=== PATIENT | female | born 1965 | race Caucasian/White ===

== ENCOUNTER 2017-11-19 16:32 | Emergency (ER) | payer BC ==
[2017-11-19] MEDS ORDERED: Sodium Chloride 0.9% 10 ML Syringe FLUSH PRN (17:00)
[2017-11-19] MEDS ORDERED: Ondansetron 4 MG/2 ML SDV IV ONE (17:00)
[2017-11-19] MEDS ORDERED: Ketorolac 30 MG/ML SDV IVPUSH ONE (17:00)
[2017-11-19 17:37] VITALS: BP 167/88
[2017-11-19] MEDS ORDERED: Sodium Chloride 0.9% 1,000 ML IV ONE (17:41)
--- NOTE | 2017-11-19 18:51 | EDM.PDOC ---
Scribed by Sada Stone 11/19/17 [id number] for Yessy Arias NP ED HPI GENERAL MEDICAL PROBLEM - General Chief Complaint: Headache Stated Complaint: MIGRANE [id number] Time Seen by Provider: 11/19/17 17:00 Source of Information: Reports: Patient, RN, RN Notes Reviewed History Limitations: Reports: No Limitations - History of Present Illness INITIAL COMMENTS - FREE TEXT/NARRATIVE: Patient presents with a migraine for 1-1/2 weeks. Not feeling well. She is not sleeping. She has right hand numbness and tingling. She also has pain in her right jaw and numb right cheek. She has a history of stress. She recently lost her father 1-1/2 weeks ago suddenly unexpected. She has no fever, diarrhea or vomiting. She has positive chills, nausea, stress and lack of sleep. She saw a chiropractor this week for sinus issues. Onset: Gradual Duration: Constant Location: Reports: Head Quality: Reports: Ache Severity: Severe Improves with: Reports: None Worsens with: Reports: None Associated Symptoms: Reports: No Other Symptoms Headache Pain Score (Numeric/FACES): 6 - Related Data Allergies Allergy/AdvReac Type Severity Reaction Status Date / Time ceftriaxone sodium Allergy Swelling Verified 11/19/17 16:46 [From Rocephin] cetirizine Allergy Swelling Verified 11/19/17 16:46 levofloxacin [From Levaquin] Allergy Swelling Verified 11/19/17 16:46 meperidine HCl [From Demerol] Allergy Nausea and Verified 11/19/17 16:46 Vomiting Home Meds: Home Meds Biotin 1 tab PO DAILY 07/04/15 [History] Calcium Carb/Vitamin D3/Vit K1 [Calcium + Vit D & K Chew] 1 tab PO BEDTIME 07/04 [History] EPINEPHrine [Epipen 2-Remberto] 0.3 ml INJECT ASDIRECTED PRN 07/04/15 [History] Fish Oil/[place]-3 Fatty Acids [Fish Oil 1,000 MG] 1 tab PO DAILY 07/04/15 [ History] Fluticasone Propionate [Flonase] 1 spray INH DAILY PRN 07/04/15 [History] Lisinopril 1 tab PO BEDTIME 07/04/15 [History] Montelukast [Singulair] 1 tab PO BEDTIME 07/04/15 [History] Pantoprazole [Protonix] 1 tab PO BEDTIME 07/04/15 [History] Simvastatin [Zocor] 1 tab PO DAILY 07/05/15 [History] Tolterodine Tartrate [Detrol LA] 4 mg PO ASDIRECTED 11/19/17 [History] Zinc 50 mg PO DAILY 11/19/17 [History] Past Medical History HEENT History: Reports: Impaired Vision Cardiovascular History: Reports: Hypertension Other Cardiovascular History: angioedema Other Respiratory History: reactive airway disease Gastrointestinal History: Reports: GERD, Other (See Below) (acid reflux) Genitourinary History: Reports: None 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 Musculoskeletal History: Reports: None Neurological History: Reports: None Psychiatric History: Reports: None Endocrine/Metabolic History: Reports: Diabetes, Type II (borderline) Hematologic History: Reports: Anemia Immunologic History: Reports: None Oncologic (Cancer) History: Reports: None Dermatologic History: Reports: Angiodema - Past Surgical History Cardiovascular Surgical History: Reports: None Female Surgical History: Reports: Section, Other (See Below) Social & Family History - Family History Family Medical History: Noncontributory - Tobacco Use Smoking Status *Q: Never Smoker Second Hand Smoke Exposure: No - Caffeine Use Caffeine Use: Reports: Coffee Other Caffeine Use: 1 cup of coffee a day - Recreational Drug Use Recreational Drug Use: No ED ROS GENERAL - Review of Systems Review Of Systems: ROS reveals no pertinent complaints other than HPI. - Physical Exam Exam: See Below Exam Limited By: No Limitations General Appearance: Alert, WD/WN, No Apparent Distress Eye Exam: Bilateral Eye: Normal Inspection Ears: Normal External Exam, Normal Canal, Hearing Grossly Normal, Normal TMs Nose: Normal Inspection, Normal Mucosa, No Blood Throat/Mouth: Normal Inspection, Normal Lips, Normal Teeth, Normal Gums, Normal Oropharynx, Normal Voice, No Airway Compromise Head Exam: Atraumatic, Normocephalic Neck: Normal Inspection, Supple, Non-Tender, Full Range of Motion Respiratory/Chest: No Respiratory Distress, Lungs Clear, Normal Breath Sounds, No Accessory Muscle Use, Chest Non-Tender Cardiovascular: Normal Peripheral Pulses, Regular Rate, Rhythm, No Edema, No Gallop, No JVD, No Murmur, No Rub GI/Abdominal: Normal Bowel Sounds, Soft, Non-Tender, No Organomegaly, No Distention, No Abnormal Bruit, No Mass (Female) Exam: Deferred Rectal (Female) Exam: Deferred Neuro Exam (Abbreviated): Other (tender and painful right jaw into the neck.) Back Exam: Normal Inspection, Full Range of Motion, NT Extremities: Normal Inspection Psychiatric: Depressed Mood, Tearful Skin Exam: Warm, Dry, Intact, Normal Color, No Rash Course - Vital Signs Last Recorded V/S: Last Vital Signs Temp 97.4 F 11/19/17 16:34 Pulse 76 11/19/17 17:37 Resp 14 11/19/17 17:37 BP 167/88 H 11/19/17 17:37 Pulse Ox 98 11/19/17 17:37 - Orders/Labs/Meds Orders: Active Orders 24 hr Category Date Time Status Peripheral IV Care [RC] . DIRECTED Care 11/19/17 17:01 Active Sodium Chloride 0.9% [Saline Flush] Med 11/19/17 17:00 Active 10 ml FLUSH ASDIRECTED PRN Peripheral IV Insertion Adult [OM.PC] Stat Oth 11/19/17 17:00 Ordered Medication Orders Sodium Chloride (Saline Flush) 10 ml FLUSH ASDIRECTED PRN PRN Reason: Keep Vein Open Last Admin: 11/19/17 17:35 Dose: 10 ml Meds: Medications Generic Name Dose Route Start Last Admin Trade Name Freq PRN Reason Stop Dose Admin Sodium Chloride 10 ml 11/19/17 17:00 11/19/17 17:35 Saline Flush FLUSH 10 ml ASDIRECTED PRN Administration Keep Vein Open Discontinued Medications Generic Name Dose Route Start Last Admin Trade Name Freq PRN Reason Stop Dose Admin Sodium Chloride 1,000 mls @ 999 mls/hr 11/19/17 17:41 11/19/17 18:00 Normal Saline IV 11/19/17 18:41 999 mls/hr .BOLUS ONE Administration Ketorolac Tromethamine 30 mg 11/19/17 17:00 11/19/17 17:35 Toradol IVPUSH 11/19/17 17:01 30 mg ONETIME ONE Administration Ondansetron HCl 4 mg 11/19/17 17:00 11/19/17 17:33 Zofran IV 11/19/17 17:01 4 mg ONETIME ONE Administration Departure - Departure Time of Disposition: 18:48 Disposition: Home, Self-Care 01 Condition: Fair Clinical Impression: Sinusitis, Tension-type headache - Discharge Information Instructions: Recurrent Migraine Headache, [id number] Forms: ED Department Discharge Additional Instructions: Increase water intake Rest Ice/heat to the neck and jaw Follow up with your primary care facility next week if no improvement RX: Norflex - My Orders Last 24 Hours: My Active Orders 11/19/17 17:00 Sodium Chloride 0.9% [Saline Flush] 10 ml FLUSH ASDIRECTED PRN Peripheral IV Insertion Adult [OM.PC] Stat 11/19/17 17:01 Peripheral IV Care [RC] . DIRECTED - Assessment/Plan Last 24 Hours: My Active Orders 11/19/17 17:00 Sodium Chloride 0.9% [Saline Flush] 10 ml FLUSH ASDIRECTED PRN Peripheral IV Insertion Adult [OM.PC] Stat 11/19/17 17:01 Peripheral IV Care [RC] . DIRECTED I have read and agree with the documentation that has been completed regarding this visit. By signing this record, I attest that the documentation was completed in my physical presence and is an accurate record of the encounter.
== END 2017-11-19 19:09 | disposition home or self-care (01) ==
LOC: DL.ED 16:32
DX: G44.209 Tension-type headache, unspecified, not intractable (principal); J32.9 Chronic sinusitis, unspecified; I10 Essential (primary) hypertension; K21.9 Gastro-esophageal reflux disease without esophagitis; Z79.899 Other long term (current) drug therapy; Z88.1 Allergy status to other antibiotic agents; Z88.6 Allergy status to analgesic agent; Z88.8 Allergy status to other drugs, medicaments and biological substances
CPT/HCPCS: 96361; 96374; 96375; 99283; J1885; J2405; J7030; J7050

== ENCOUNTER 2019-03-30 02:49 | Emergency (ER) | payer BC ==
[2019-03-30] MEDS ORDERED: methylPREDNISolone Sodium Succinate 125 MG/2 ML SDV IV ONE (02:50)
[2019-03-30] MEDS ORDERED: diphenhydrAMINE 50 MG/ML SDV IV ONE (02:50)
[2019-03-30] MEDS ORDERED: methylPREDNISolone Sodium Succinate 125 MG/2 ML SDV ONE (03:10)
[2019-03-30] MEDS ORDERED: diphenhydrAMINE 50 MG/ML SDV ONE (03:11)
[2019-03-30] MEDS ORDERED: EPINEPHrine 1 MG/ML 30 ML MDV ONE (03:51)
[2019-03-30 05:18] LABS: SODIUM,NA 136 mmol/L (135-145)
[2019-03-30 05:19] LABS: ANION GAP 14.6; CHLORIDE,CL 103 mmol/L (101-111)
== END 2019-03-30 05:52 | disposition home or self-care (01) ==
LOC: DL.ED 02:49
DX: T78.3XXA Angioneurotic edema, initial encounter (principal)
CPT/HCPCS: 36415; 80053; 85025; 86308; 87081; 87430; 96372; 96374; 96375; 99283; J1200; J2930

== ENCOUNTER 2019-11-22 19:20 | Emergency (ER) | payer BC ==
[2019-11-22] MEDS ORDERED: predniSONE 10 MG Tab PO ONE (19:21)
[2019-11-22] MEDS ORDERED: methylPREDNISolone Sodium Succinate 125 MG/2 ML SDV IVPUSH ONE (19:25)
[2019-11-22 19:31] VITALS: BP 203/112; PULSE 116
[2019-11-22] MEDS ORDERED: Famotidine 20 MG/2 ML SDV IVPUSH ONE (19:33)
[2019-11-22 20:23] LABS: ANION GAP 16.1; CHLORIDE,CL 99 mmol/L (101-111); SODIUM,NA 133 mmol/L (135-145)
--- NOTE | 2019-11-22 21:02 | EDM.PDOC ---
ED HPI GENERAL MEDICAL PROBLEM - General Chief Complaint: Allergic Reaction Stated Complaint: THROATS SWELLING Time Seen by Provider: 11/22/19 19:30 Source of Information: Reports: Patient, Family, RN History Limitations: Reports: No Limitations - History of Present Illness INITIAL COMMENTS - FREE TEXT/NARRATIVE: ED ambulatory with c/o breathing difficulty Hx idiopathic angioedema. has had workup at [place] and cause undetermined. Throat and tongue swelling started approximately one hour ago after emesis. Used epi pen at home, Feeling shaky now throat starting to feel slightly better. Medication list reviewed. Patient currently on Lisinopril and dose increasing since September due to hypertension. States adverse symptom of ELISE medications has not been discussed with her. Has been on Lisinopril prior to onset of first episode. - Related Data Allergies Allergy/AdvReac Type Severity Reaction Status Date / Time ceftriaxone sodium Allergy Swelling Verified 11/22/19 19:42 [From Rocephin] cetirizine Allergy Swelling Verified 11/22/19 19:42 levofloxacin [From Levaquin] Allergy Swelling Verified 11/22/19 19:42 lisinopril Allergy Airway Verified 11/25/19 06:23 Tightness meperidine HCl [From Demerol] Allergy Nausea and Verified 11/22/19 19:42 Vomiting Home Meds: Home Meds Biotin 1 tab PO DAILY 07/04/15 [History] Calcium Carb/Vitamin D3/Vit K1 [Calcium + Vit D & K Chew] 1 tab PO BEDTIME 07/04 [History] EPINEPHrine [Epipen 2-Remberto] 0.3 ml INJECT ASDIRECTED PRN 07/04/15 [History] Fish Oil/[place]-3 Fatty Acids [Fish Oil 1,000 MG] 1 tab PO DAILY 07/04/15 [ History] Fluticasone Propionate [Flonase] 1 spray INH DAILY PRN 07/04/15 [History] Lisinopril 1 tab PO BEDTIME 07/04/15 [History] Montelukast [Singulair] 1 tab PO BEDTIME 07/04/15 [History] Pantoprazole [Protonix] 1 tab PO BEDTIME 07/04/15 [History] Simvastatin [Zocor] 1 tab PO DAILY 07/05/15 [History] Tolterodine Tartrate [Detrol LA] 4 mg PO ASDIRECTED 11/19/17 [History] Zinc 50 mg PO DAILY 11/19/17 [History] Past Medical History HEENT History: Reports: Impaired Vision Cardiovascular History: Reports: Hypertension Other Cardiovascular History: angioedema Other Respiratory History: reactive airway disease Gastrointestinal History: Reports: GERD Genitourinary History: Reports: None 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 Musculoskeletal History: Reports: None Neurological History: Reports: None Psychiatric History: Reports: None Endocrine/Metabolic History: Reports: Diabetes, Type II Hematologic History: Reports: Anemia Immunologic History: Reports: None Oncologic (Cancer) History: Reports: None Dermatologic History: Reports: Angiodema - Past Surgical History Cardiovascular Surgical History: Reports: None Female Surgical History: Reports: Section Social & Family History - Family History Family Medical History: Noncontributory - Tobacco Use Smoking Status *Q: Never Smoker - Caffeine Use Caffeine Use: Reports: Coffee Other Caffeine Use: 1 cup of coffee a day - Recreational Drug Use Recreational Drug Use: No ED ROS ALLERGIC REACTION - Review of Systems Review Of Systems: Comprehensive ROS is negative, except as noted in HPI. ED EXAM GENERAL NO PERIP PULSE - Physical Exam Exam: See Below Exam Limited By: No Limitations General Appearance: Alert, Anxious, Mild Distress Eye Exam: Bilateral Eye: EOMI Ears: Normal External Exam Nose: Normal Inspection Throat/Mouth: Normal Lips, Other (tongue swollen greater on left. tolerating secretion, mild hoarseness , throat mild fullness.) Head: Atraumatic, Normocephalic Neck: Full Range of Motion. No: Thyromegaly Respiratory/Chest: No: No Respiratory Distress (mild), Rales, Rhonchi, Wheezing Cardiovascular: Regular Rate, Rhythm, Tachycardia GI/Abdominal: Normal Bowel Sounds, Soft Back Exam: Normal Inspection Extremities: Normal Inspection Neurological: Alert, Oriented, Normal Cognition, No Motor/Sensory Deficits Psychiatric: Anxious Skin Exam: Warm, Dry, Intact, Normal Color Course - Vital Signs Last Recorded V/S: Last Vital Signs Temp 98.1 F 11/22/19 19:30 Pulse 116 H 11/22/19 19:30 Resp 20 11/22/19 19:30 BP 203/112 H 11/22/19 19:30 Pulse Ox 100 11/22/19 19:30 - Orders/Labs/Meds Labs: Laboratory Tests 11/22/19 11/22/19 11/22/19 Range/Units 19:51 19:51 19:51 WBC 11.2 H (5.0-10.0) 10^3/uL RBC 4.49 (4.2-5.4) 10^6/uL Hgb 12.4 (12.0-16.0) g/dL Hct 37.3 (37.0-47.0) % MCV 83.1 (80-100) fL MCH 27.6 (27.0-34.0) pg MCHC 33.2 (33.0-35.0) g/dL Plt Count 332 D (150-450) 10^3/uL Neut % (Auto) 56.4 (42.2-75.2) % Lymph % (Auto) 30.5 (20.5-50.1) % [place] % (Auto) 10.9 H (2-8) % Eos % (Auto) 1.9 (1.0-3.0) % Baso % (Auto) 0.3 (0.0-1.0) % Sodium 133 L (135-145) mmol/L Potassium 3.1 L (3.6-5.0) mmol/L Chloride 99 L (101-111) mmol/L Carbon Dioxide 21.0 (21.0-31.0) mmol/L Anion Gap 16.1 BUN 15 (7-18) mg/dL Creatinine 0.8 (0.6-1.3) mg/dL Est Cr Clr Drug Dosing 68.05 mL/min Estimated GFR (MDRD) > 60 BUN/Creatinine Ratio 18.75 Glucose 150 H (74-105) mg/dL Calcium 8.9 (8.4-10.2) mg/dl Total Bilirubin 0.5 (0.2-1.0) mg/dL AST 25 (10-42) IU/L ALT 33 (10-60) IU/L Alkaline Phosphatase 88 (42-121) IU/L C-Reactive Protein 0.8 (0.0-1.3) mg/dL Total Protein 7.5 (6.7-8.2) g/dl Albumin 4.2 (3.2-5.5) g/dl Globulin 3.3 Albumin/Globulin Ratio 1.27 Meds: Medications Discontinued Medications Generic Name Dose Route Start Last Admin Trade Name Freq PRN Reason Stop Dose Admin Famotidine 20 mg 11/22/19 19:33 11/22/19 19:36 Pepcid IVPUSH 11/22/19 19:34 20 mg ONETIME ONE Administration Methylprednisolone Sodium Succinate 125 mg 11/22/19 19:25 11/22/19 19:34 Solu-Medrol IVPUSH 11/22/19 19:26 125 mg ONETIME ONE Administration Prednisone Confirm 11/22/19 21:04 Prednisone Administered 11/22/19 21:05 Dose 10 mg .ROUTE .STK-MED ONE Prednisone Confirm 11/22/19 21:08 Prednisone Administered 11/22/19 21:09 Dose 30 mg .ROUTE .STK-MED ONE - Re-Assessments/Exams Free Text/Narrative Re-Assessment/Exam: Swelling resolving . Consult Dr Faye. Here to assess patient. Stable for discharge. Agree with ELISE risk recommendation Amlodopine and stop Lisinopril Patient to follow in am with PCP. Continue Benadryl, Epi available if needed Add oral steroid. Patient comfortable with discharge home. Departure - Departure Time of Disposition: 21:00 Disposition: Home, Self-Care 01 Condition: Good Clinical Impression: Angio-edema Qualifiers: Encounter type: initial encounter Qualified Code(s): T78.3XXA - Angioneurotic edema, initial encounter - Discharge Information *PRESCRIPTION DRUG MONITORING PROGRAM REVIEWED*: No *COPY OF PRESCRIPTION DRUG MONITORING REPORT IN PATIENT GREG: No Instructions: Angioedema, [id number] Forms: ED Department Discharge Additional Instructions: stop lisinopril amlodopine 5mg daily monitor blood pressure prednisone taper clinic follow up Sepsis Event Note - Evaluation Sepsis Screening Result: No Definite Risk - Focused Exam Date Exam was Performed: 11/25/19 Time Exam was Performed: 06:13
[2019-11-22] MEDS ORDERED: predniSONE 10 MG Tab ONE ×2 (21:04→21:08)
== END 2019-11-22 21:11 | disposition home or self-care (01) ==
LOC: DL.ED 19:20
DX: T78.3XXA Angioneurotic edema, initial encounter (principal); I10 Essential (primary) hypertension; E11.9 Type 2 diabetes mellitus without complications; J45.909 Unspecified asthma, uncomplicated; K21.9 Gastro-esophageal reflux disease without esophagitis; Z88.8 Allergy status to other drugs, medicaments and biological substances; Z79.899 Other long term (current) drug therapy
CPT/HCPCS: 36415; 80053; 85025; 86140; 96374; 96375; 99284; A9270; J2930; J3490

== ENCOUNTER 2019-12-06 22:28 | Emergency (ER) | payer BC ==
--- NOTE | 2019-12-06 22:49 | EDM.PDOC ---
ED HPI GENERAL MEDICAL PROBLEM - General Chief Complaint: Cardiovascular Problem Stated Complaint: HIGH BLOOD PRESSURE Time Seen by Provider: 12/06/19 22:40 Source of Information: Reports: Patient History Limitations: Reports: No Limitations - History of Present Illness INITIAL COMMENTS - FREE TEXT/NARRATIVE: ED with c/o continued high blood pressure. No headache, weakness or blurred vision, just does not feel like it able to pay attention as much. Patient seen approximately 2 weeks ago for angioedema. Lisinopril stopped, Was given Rx for amlodipine but did not fill, contacted PCP in am and was switched too valsartan initially at 40mg then increased to 80mg. Was to contact PCP on Wednesday but Bp 160's tonight. Patient wondering if should resume lisinopril. - Related Data Allergies Allergy/AdvReac Type Severity Reaction Status Date / Time ceftriaxone sodium Allergy Swelling Verified 12/06/19 22:51 [From Rocephin] cetirizine Allergy Swelling Verified 12/06/19 22:51 levofloxacin [From Levaquin] Allergy Swelling Verified 12/06/19 22:51 lisinopril Allergy Airway Verified 12/06/19 22:51 Tightness meperidine HCl [From Demerol] Allergy Nausea and Verified 12/06/19 22:51 Vomiting Home Meds: Home Meds Biotin 1 tab PO DAILY 07/04/15 [History] Calcium Carb/Vitamin D3/Vit K1 [Calcium + Vit D & K Chew] 1 tab PO BEDTIME 07/04 [History] EPINEPHrine [Epipen 2-Remberto] 0.3 ml INJECT ASDIRECTED PRN 07/04/15 [History] Fish Oil/[place]-3 Fatty Acids [Fish Oil 1,000 MG] 1 tab PO DAILY 07/04/15 [ History] Fluticasone Propionate [Flonase] 1 spray INH DAILY PRN 07/04/15 [History] Lisinopril 1 tab PO BEDTIME 07/04/15 [History] Montelukast [Singulair] 1 tab PO BEDTIME 07/04/15 [History] Pantoprazole [Protonix] 1 tab PO BEDTIME 07/04/15 [History] Simvastatin [Zocor] 1 tab PO DAILY 07/05/15 [History] Tolterodine Tartrate [Detrol LA] 4 mg PO ASDIRECTED 11/19/17 [History] Zinc 50 mg PO DAILY 11/19/17 [History] Valsartan 80 mg PO DAILY 12/06/19 [History] Past Medical History HEENT History: Reports: Impaired Vision Cardiovascular History: Reports: Hypertension Other Cardiovascular History: angioedema Other Respiratory History: reactive airway disease Gastrointestinal History: Reports: GERD Genitourinary History: Reports: None 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 Musculoskeletal History: Reports: None Neurological History: Reports: None Psychiatric History: Reports: None Endocrine/Metabolic History: Reports: Diabetes, Type II Hematologic History: Reports: Anemia Immunologic History: Reports: None Oncologic (Cancer) History: Reports: None Dermatologic History: Reports: Angiodema - Past Surgical History Cardiovascular Surgical History: Reports: None Female Surgical History: Reports: Section Social & Family History - Family History Family Medical History: Noncontributory - Caffeine Use Caffeine Use: Reports: Coffee Other Caffeine Use: 1 cup of coffee a day ED ROS GENERAL - Review of Systems Review Of Systems: See Below Constitutional: Reports: No Symptoms HEENT: Reports: No Symptoms Respiratory: Reports: No Symptoms Cardiovascular: Reports: Blood Pressure Problem GI/Abdominal: Reports: No Symptoms : Reports: No Symptoms Musculoskeletal: Reports: No Symptoms Skin: Reports: No Symptoms Neurological: Reports: No Symptoms. Denies: Confusion, Dizziness, Headache, Numbness, Paresthesia, Seizure, Syncope, Tingling, Trouble Speaking, Difficulty Walking, Weakness, Change in Speech, Gait Disturbance Psychiatric: Reports: No Symptoms, Anxiety ED EXAM, GENERAL - Physical Exam Exam: See Below Exam Limited By: No Limitations General Appearance: Alert, Anxious Eye Exam: Bilateral Eye: EOMI Ears: Normal External Exam Nose: Normal Inspection Throat/Mouth: Normal Inspection Head: Atraumatic, Normocephalic Neck: Normal Inspection Respiratory/Chest: No Respiratory Distress, Lungs Clear, Normal Breath Sounds Cardiovascular: Regular Rate, Rhythm GI/Abdominal: Normal Bowel Sounds, Soft Back Exam: Normal Inspection Extremities: Normal Inspection, Normal Range of Motion Neurological: Alert, Oriented, CN II-XII Intact, Normal Cognition, No Motor/ Sensory Deficits Psychiatric: Anxious Skin Exam: Warm, Dry, Intact, Normal Color Course - Vital Signs Last Recorded V/S: Last Vital Signs Temp 97.7 F 12/06/19 22:40 Pulse 79 12/07/19 00:03 Resp 14 12/07/19 00:03 BP 160/81 H 12/07/19 00:03 Pulse Ox 100 12/07/19 00:03 - Orders/Labs/Meds Labs: Laboratory Tests 12/06/19 12/06/19 Range/Units 23:09 23:09 WBC 7.1 (5.0-10.0) 10^3/uL RBC 4.59 (4.2-5.4) 10^6/uL Hgb 12.7 (12.0-16.0) g/dL Hct 38.8 (37.0-47.0) % MCV 84.5 (80-100) fL MCH 27.7 (27.0-34.0) pg MCHC 32.7 L (33.0-35.0) g/dL Plt Count 268 (150-450) 10^3/uL Neut % (Auto) 54.0 (42.2-75.2) % Lymph % (Auto) 34.6 (20.5-50.1) % [place] % (Auto) 8.3 H (2-8) % Eos % (Auto) 2.7 (1.0-3.0) % Baso % (Auto) 0.4 (0.0-1.0) % Sodium 136 (135-145) mmol/L Potassium 3.8 (3.6-5.0) mmol/L Chloride 103 (101-111) mmol/L Carbon Dioxide 23.0 (21.0-31.0) mmol/L Anion Gap 13.8 BUN 16 (7-18) mg/dL Creatinine 0.9 (0.6-1.3) mg/dL Est Cr Clr Drug Dosing 60.49 mL/min Estimated GFR (MDRD) > 60 BUN/Creatinine Ratio 17.77 Glucose 192 H (74-105) mg/dL Calcium 9.3 (8.4-10.2) mg/dl Total Bilirubin 0.4 (0.2-1.0) mg/dL AST 22 (10-42) IU/L ALT 27 (10-60) IU/L Alkaline Phosphatase 90 (42-121) IU/L Total Protein 7.6 (6.7-8.2) g/dl Albumin 4.3 (3.2-5.5) g/dl Globulin 3.3 Albumin/Globulin Ratio 1.30 Meds: Medications Discontinued Medications Generic Name Dose Route Start Last Admin Trade Name Freq PRN Reason Stop Dose Admin Labetalol HCl 10 mg 12/06/19 23:00 12/06/19 23:15 Normodyne IVPUSH 10 mg Q4H PRN Administration Hypertension Protocol - Re-Assessments/Exams Free Text/Narrative Re-Assessment/Exam: BP improved. Rx for amlodipine in addition to losartan. Disscused with patient, would not recommend resuming Lisinopril with recurrent episodes of angioedema. Numerous alternatives to manage BP that do not have potential risk for airway compromise. Patient to follow with PCP. Departure - Departure Time of Disposition: 00:08 Disposition: Home, Self-Care 01 Condition: Good Clinical Impression: Anxiety about health Hypertension Qualifiers: Hypertension type: essential hypertension Qualified Code(s): I10 - Essential ( primary) hypertension Instructions: Hypertension, [id number] Referrals: Jordana Prather MD [Primary Care Provider] - Forms: ED Department Discharge Additional Instructions: clinic follow up daily BP check Continue valsartan amlodipine 5mg one daily Sepsis Event Note - Evaluation Sepsis Screening Result: No Definite Risk - Focused Exam Vital Signs: Vital Signs Temp Pulse Resp BP Pulse Ox 12/07/19 00:03 79 14 160/81 H 100 12/06/19 22:40 97.7 F 88 18 214/99 H 100 Date Exam was Performed: 12/07/19 Time Exam was Performed: 02:49
[2019-12-06] MEDS ORDERED: Labetalol 100 MG/20 ML MDV IVPUSH PRN (23:00)
[2019-12-06 23:59] LABS: ANION GAP 13.8; CHLORIDE,CL 103 mmol/L (101-111); SODIUM,NA 136 mmol/L (135-145)
[2019-12-07 00:04] VITALS: BP 160/81; PULSE 79
== END 2019-12-07 00:26 | disposition home or self-care (01) ==
LOC: DL.ED 22:28
DX: I10 Essential (primary) hypertension (principal); F41.9 Anxiety disorder, unspecified; E11.9 Type 2 diabetes mellitus without complications; K21.9 Gastro-esophageal reflux disease without esophagitis; Z79.899 Other long term (current) drug therapy; Z88.1 Allergy status to other antibiotic agents; Z88.5 Allergy status to narcotic agent
CPT/HCPCS: 36415; 80053; 85025; 96374; 99283; J3490

== ENCOUNTER 2019-12-08 10:55 | Emergency (ER) | payer BC ==
[2019-12-08 11:08] VITALS: PULSE 81
--- NOTE | 2019-12-08 11:14 | EDM.PDOC ---
ED HPI GENERAL MEDICAL PROBLEM - General Stated Complaint: HIGH BLOOD PRESSURE Time Seen by Provider: 12/08/19 11:13 Source of Information: Reports: Patient, Family, RN, RN Notes Reviewed History Limitations: Reports: No Limitations - History of Present Illness INITIAL COMMENTS - FREE TEXT/NARRATIVE: patient presents to ER with complaint of high blood pressure, and numbness to the right side of her face, as well as a right-sided headache which she states is dull, radiates 3-4/10. Patient states she was seen in the ER a few days ago for high blood pressure. Has previously been on lisinopril in the past, and had an episode of angioedema. Patient was taken off the lisinopril. Patient has been working closely with her primary care provider and has currently been taking amlodipine as well as valsartan. Patient denies any visual disturbances, weakness slurred speech. Patient states she woke up today with the numbness to the right side of the face. Onset: Gradual Duration: Constant, Getting Worse Headache Pain Score (Numeric/FACES): 3 - Related Data Allergies Allergy/AdvReac Type Severity Reaction Status Date / Time ceftriaxone sodium Allergy Swelling Verified 12/06/19 22:51 [From Rocephin] cetirizine Allergy Swelling Verified 12/06/19 22:51 levofloxacin [From Levaquin] Allergy Swelling Verified 12/06/19 22:51 lisinopril Allergy Airway Verified 12/06/19 22:51 Tightness meperidine HCl [From Demerol] Allergy Nausea and Verified 12/06/19 22:51 Vomiting Home Meds: Home Meds Calcium Carb/Vitamin D3/Vit K1 [Calcium + Vit D & K Chew] 1 tab PO BEDTIME 07/04 [History] EPINEPHrine [Epipen 2-Remberto] 0.3 ml INJECT ASDIRECTED PRN 07/04/15 [History] Fluticasone Propionate [Flonase] 1 spray INH DAILY PRN 07/04/15 [History] Montelukast [Singulair] 1 tab PO BEDTIME 07/04/15 [History] Pantoprazole [Protonix] 1 tab PO BEDTIME 07/04/15 [History] RX: Biotin 1 tab PO DAILY 07/04/15 [History] RX: Fish Oil/[place]-3 Fatty Acids [Fish Oil 1,000 MG] 1 tab PO DAILY 07/04/15 [ History] RX: Lisinopril 1 tab PO BEDTIME 07/04/15 [History] RX: Simvastatin [Zocor] 1 tab PO DAILY 07/05/15 [History] RX: Zinc 50 mg PO DAILY 11/19/17 [History] Tolterodine Tartrate [Detrol LA] 4 mg PO ASDIRECTED 11/19/17 [History] Valsartan 80 mg PO DAILY 12/06/19 [History] Past Medical History HEENT History: Reports: Impaired Vision Cardiovascular History: Reports: Hypertension Other Cardiovascular History: angioedema Other Respiratory History: reactive airway disease Gastrointestinal History: Reports: GERD Genitourinary History: Reports: None GEOPHYSICAL DRAFTER History: Reports: None Musculoskeletal History: Reports: None Neurological History: Reports: None Psychiatric History: Reports: None Endocrine/Metabolic History: Reports: Diabetes, Type II Hematologic History: Reports: Anemia Immunologic History: Reports: None Oncologic (Cancer) History: Reports: None Dermatologic History: Reports: Angiodema - Past Surgical History Cardiovascular Surgical History: Reports: None Female Surgical History: Reports: Section Social & Family History - Family History Family Medical History: Noncontributory - Caffeine Use Caffeine Use: Reports: Coffee Other Caffeine Use: 1 cup of coffee a day ED ROS GENERAL - Review of Systems Review Of Systems: Comprehensive ROS is negative, except as noted in HPI. ED EXAM, GENERAL - Physical Exam Exam: See Below Exam Limited By: No Limitations General Appearance: Alert, WD/WN, No Apparent Distress Eye Exam: Bilateral Eye: EOMI, Normal Inspection Ears: Normal External Exam, Hearing Grossly Normal Nose: Normal Inspection Throat/Mouth: Normal Inspection, Normal Voice, No Airway Compromise Head: Atraumatic, Normocephalic Neck: Normal Inspection, Supple, Non-Tender, Full Range of Motion Respiratory/Chest: No Respiratory Distress, Lungs Clear, Normal Breath Sounds, No Accessory Muscle Use, Chest Non-Tender Cardiovascular: Normal Peripheral Pulses, Regular Rate, Rhythm, No Edema, No Gallop, No JVD, No Murmur, No Rub Peripheral Pulses: 2+: Radial (L), Radial (R) GI/Abdominal: Normal Bowel Sounds, Soft, Non-Tender (Female) Exam: Deferred Rectal (Female) Exam: Deferred Back Exam: Normal Inspection, Full Range of Motion, NT Extremities: Normal Inspection, Normal Range of Motion, Non-Tender, Normal Capillary Refill, No Pedal Edema Neurological: Alert, Oriented, CN II-XII Intact, Normal Cognition, Normal Gait, Normal Reflexes, No Motor/Sensory Deficits, Other (numbness to the right side of the face) Psychiatric: Normal Affect, Normal Mood Skin Exam: Warm, Dry, Intact, Normal Color, No Rash Lymphatic: No Adenopathy Course - Vital Signs Last Recorded V/S: Last Vital Signs Temp 96.9 F 12/08/19 11:02 Pulse 81 12/08/19 11:02 Resp 18 12/08/19 11:02 BP 148/89 H 12/08/19 12:15 Pulse Ox 100 12/08/19 11:02 - Orders/Labs/Meds Orders: Active Orders 24 hr Category Date Time Status Peripheral IV Care [RC] . DIRECTED Care 12/08/19 11:24 Active Peripheral IV Insertion Adult [OM.PC] Stat Oth 12/08/19 11:23 Ordered Labs: Laboratory Tests 12/08/19 12/08/19 Range/Units 11:53 11:53 WBC 5.3 (5.0-10.0) 10^3/uL RBC 4.30 (4.2-5.4) 10^6/uL Hgb 12.0 (12.0-16.0) g/dL Hct 35.8 L (37.0-47.0) % MCV 83.3 (80-100) fL MCH 27.9 (27.0-34.0) pg MCHC 33.5 (33.0-35.0) g/dL Plt Count 242 (150-450) 10^3/uL Neut % (Auto) 58.3 (42.2-75.2) % Lymph % (Auto) 27.9 (20.5-50.1) % [place] % (Auto) 10.8 H (2-8) % Eos % (Auto) 2.6 (1.0-3.0) % Baso % (Auto) 0.4 (0.0-1.0) % Sodium 135 (135-145) mmol/L Potassium 3.7 (3.6-5.0) mmol/L Chloride 102 (101-111) mmol/L Carbon Dioxide 23.0 (21.0-31.0) mmol/L Anion Gap 13.7 BUN 12 (7-18) mg/dL Creatinine 0.8 (0.6-1.3) mg/dL Est Cr Clr Drug Dosing TNP Estimated GFR (MDRD) > 60 BUN/Creatinine Ratio 15.00 Glucose 110 H (74-105) mg/dL Calcium 9.2 (8.4-10.2) mg/dl Total Bilirubin 0.6 (0.2-1.0) mg/dL AST 21 (10-42) IU/L ALT 28 (10-60) IU/L Alkaline Phosphatase 85 (42-121) IU/L Total Protein 7.3 (6.7-8.2) g/dl Albumin 4.1 (3.2-5.5) g/dl Globulin 3.2 Albumin/Globulin Ratio 1.28 Meds: Medications Discontinued Medications Generic Name Dose Route Start Last Admin Trade Name Freq PRN Reason Stop Dose Admin Clonidine HCl 0.1 mg 12/08/19 11:24 12/08/19 11:42 Catapres PO 12/08/19 11:25 Not Given ONETIME ONE Sodium Chloride 10 ml 12/08/19 11:24 Saline Flush FLUSH ASDIRECTED PRN Keep Vein Open - Radiology Interpretation Free Text/Narrative:: head CT without contrast: negative unenhanced CT scan head and brain See radiologist's report Departure - Departure Time of Disposition: 12:56 Disposition: Home, Self-Care 01 Reason for Transfer *Q: Other Condition: Fair Clinical Impression: Right facial numbness Hypertension Qualifiers: Hypertension type: essential hypertension Qualified Code(s): I10 - Essential ( primary) hypertension Instructions: Hypertension, [id number], Paresthesia, [id number] Forms: ED Department Discharge Additional Instructions: Continue to take your medications as prescribed Return to the ER with any further or worsening of symptoms Follow up with your primary care facility Sepsis Event Note - Evaluation Sepsis Screening Result: No Definite Risk - Focused Exam Vital Signs: Vital Signs Temp Pulse Resp BP BP Pulse Ox 12/08/19 12:15 148/89 H 12/08/19 11:42 167/88 H 12/08/19 11:30 167/88 H 12/08/19 11:02 96.9 F 81 18 205/88 H 100 Date Exam was Performed: 12/08/19 Time Exam was Performed: 17:25 - My Orders Last 24 Hours: My Active Orders 12/08/19 11:23 Peripheral IV Insertion Adult [OM.PC] Stat 12/08/19 11:24 Peripheral IV Care [RC] . DIRECTED - Assessment/Plan Last 24 Hours: My Active Orders 12/08/19 11:23 Peripheral IV Insertion Adult [OM.PC] Stat 12/08/19 11:24 Peripheral IV Care [RC] . DIRECTED
[2019-12-08] MEDS ORDERED: cloNIDine 0.1 MG Tab PO ONE (11:24)
[2019-12-08] MEDS ORDERED: Sodium Chloride 0.9% 10 ML Syringe FLUSH PRN (11:24)
--- NOTE | 2019-12-08 12:15 | CT ---
EXAMINATION: Head wo Cont SEX: Female AGE: 54 years CLINICAL HISTORY: 54 year-old 200 pound diabetic female with hypertension, headache, and R face numbness. New meds. Scan technique: Volume acquisition of data unenhanced CT scan of the head and brain obtained with the patient lying supine on the [employer] 1.[employer] magnet [place], [place]. All data archived in the PACS system for storage, reformatting axial/sagittal/coronal planes and study (bone/brain windows). Interpretation: 1. Uniformly thick bony calvarium without sign of pathologic skeletal lesion, skull fracture, underlying brain contusion or epidural/subdural hematoma. 2. Symmetric clear pneumatization of the paranasal and mastoid sinuses i.e. no abnormal inflammation or sinusitis. 3. Symmetric mild atrophy over the convexity. Underlying mirror-image normal ventricular system. Physiologic pineal and choroid plexus calcifications. 4. No supratentorial or posterior fossa mass lesion. Cerebellum and brainstem unremarkable. 5. No focal areas of ischemic infarct or signs of encephalomalacia. No arachnoid cyst. 6. No sign of acute intracerebral/intraventricular/subarachnoid bleed. CONCLUSION: Negative unenhanced CT scan head and brain.
[2019-12-08 12:25] LABS: ANION GAP 13.7; CHLORIDE,CL 102 mmol/L (101-111); SODIUM,NA 135 mmol/L (135-145)
[2019-12-08 14:27] VITALS: BP 148/89
== END 2019-12-08 12:57 | disposition home or self-care (01) ==
LOC: DL.ED 10:55
DX: I10 Essential (primary) hypertension (principal); R20.0 Anesthesia of skin; J45.909 Unspecified asthma, uncomplicated; K21.9 Gastro-esophageal reflux disease without esophagitis; E11.9 Type 2 diabetes mellitus without complications; Z88.1 Allergy status to other antibiotic agents; Z88.8 Allergy status to other drugs, medicaments and biological substances; Z88.5 Allergy status to narcotic agent; Z79.51 Long term (current) use of inhaled steroids; Z79.899 Other long term (current) drug therapy
CPT/HCPCS: 36415; 70450; 80053; 85025; 99284-25